=== PATIENT | female | born 1965 | race Caucasian/White ===

== ENCOUNTER 2016-11-05 19:07 | Observation (INO) | payer BC ==
[~2016-11-05] VITALS: Ht 160 cm; Wt 134.6 kg
[~2016-11-05 19:07] MED LIST: ALBUTEROL0.83 MG/ML IH; ANTIVERT 25MG25 MG PO; CARAFATE 1GM1 G PO; CELEBREX 200MG200 MG PO; CLARITIN 1010 MG/TAB PO; COLACE 100100 MG/CAP PO; DICLOFENAC POT.50 MG PO; DICLOFENAC SOD50 MG PO; DONNATAL PO; FLEXERIL 1010 MG/TAB PO; FLONASE NASAL S16 GM NS; HUMIRA40 MG/0.8 SQ; MELOXICAM PO; MOTRIN 600600 MG/TAB PO; NO HOME MEDICATIONS; PERCOCET 325 MG1 TA2 PO; PREVACID 15MG15 M1 PO; PRILOSEC 20MG20 MG PO; PROAIR HFA0.09 MG/AC IH; REGLAN 5MG T5 MG/TAB PO; TYLENOL ARTHRI650 M1 PO; ULTRAM 50MG TAB50 MG PO; VALIUM5 MG PO; VICODIN 5/5001 UDTAB PO; ZOFRAN4 M1 PO
[2016-11-05 19:37] LABS: BASO % 0.6 % (0.0-2.0); EOS # 0.2 (0.0-0.7); EOS % 2.6 % (0-4.0); GRAN # 2.7 (1.4-6.5); GRAN % 40.7 % (42.2-75.2); HEMATOCRIT 40.1 % (37.0-47.0); HEMOGLOBIN 13.8 g/dl (12.5-16.0); LYMPH % 45.7 % (20.0-51.0); MEAN CELL VOLUME 94 fl (80.0-100.0); MEAN CORPUSCULAR HEMOGLOBIN 32 pg (27.0-31.0); MEAN CORPUSCULAR HGB CONC 34 g/dl (33.0-37.0); MEAN PLATELET VOLUME 10.1 fl (7.4-10.4); MONO # 0.7 (0.1-0.6); MONO % 10.2 % (1.7-9.3); PLATELET COUNT 328 K/mm3 (130-400); RED BLOOD COUNT 4.26 M/mm3 (4.10-5.30); REDCELL DISTRIBUTION WIDTH-CV 14.4 % (11.5-14.5); WHITE BLOOD COUNT 6.5 K/mm3 (4.8-10.8)
[2016-11-05 19:53] LABS: ADJUSTED CALCIUM 9.5 mg/dL (8.4-10.2); ALANINE AMINOTRANSFERASE 49 U/L (9-52); ALBUMIN 4.2 gm/dL (3.5-5.0); ALKALINE PHOSPHATASE 54 U/L (50-136); ANION GAP 12 mmol/L (7-16); BILIRUBIN,TOTAL 0.7 mg/dL (0.0-1.0); BLOOD UREA NITROGEN 15 mg/dL (7-17); CALCIUM 9.7 mg/dL (8.4-10.2); CARBON DIOXIDE 30 mmol/L (22-30); CHLORIDE 100 mmol/L (98-107); GLUCOSE 128 mg/dL (74-106); POTASSIUM 3.3 mmol/L (3.4-5.0); SODIUM 142 mmol/L (137-145); TOTAL PROTEIN 7.7 gm/dL (6.4-8.2)
[2016-11-05 20:06] LABS: TROPONIN-I < 0.012 ng/mL (0.000-0.034)
[2016-11-05] MEDS ORDERED: TYLENOL 500MG500 MG PO (23:28)
[2016-11-05] MEDS ORDERED: RELAFEN750 MG PO (23:52)
[2016-11-05] MEDS ORDERED: FOLIC ACID 11 MG/TA1 PO (23:53)
[2016-11-05] MEDS ORDERED: HCTZ 25MG TAB25 MG PO (23:54)
[2016-11-05] MEDS ORDERED: METHOTREXA2.5 MG/TAB PO (23:56)
[2016-11-05] MEDS ORDERED: EFFEXOR-XR150 MG PO (23:58)
[2016-11-06 00:04] VITALS: BP 135/65; PULSE 69; TEMP 97.6
[2016-11-06 01:36] LABS: MAGNESIUM 1.7 mg/dL (1.6-2.3); PHOSPHOROUS 3.6 mg/dL (2.5-4.5)
[2016-11-06 04:11] VITALS: BP 141/75; PULSE 67; TEMP 97.3
[2016-11-06 04:40] LABS: PH 6 (5-8); URINE APPEARANCE Clear; URINE BACTERIA Rare /hpf; URINE BILIRUBIN Negative (NEGATIVE); URINE BLOOD Negative (NEGATIVE); URINE COLOR Yellow; URINE GLUCOSE Negative (NEGATIVE); URINE KETONE Negative (NEGATIVE); URINE UROBILINOGEN Negative (NEGATIVE)
[2016-11-06 07:46] LABS: CALCIUM 9.3 mg/dL (8.4-10.2); CREATININE, serum 0.84 mg/dL (0.52-1.25); POTASSIUM 3.9 mmol/L (3.4-5.0)
[2016-11-06 07:58] VITALS: BP 132/66; PULSE 71; TEMP 98.5
[2016-11-06 15:30] VITALS: BP 128/60; PULSE 77; TEMP 99
[2016-11-06 18:36] LABS: CEREBROSPINAL TUBE #4; CSF APPEARANCE CLEAR; CSF COLOR COLORLESS
[2016-11-06 19:29] VITALS: BP 116/62; PULSE 73; TEMP 98.2
[2016-11-07 03:31] VITALS: BP 135/72; PULSE 72; TEMP 97.8
[2016-11-07 07:45] VITALS: BP 148/92; PULSE 74; TEMP 98.4
[2016-11-07] MEDS ORDERED: ZOFRAN 4MG T4 MG/TAB PO (11:11)
[2016-11-07] MEDS ORDERED: IMITREX50 MG PO (11:11)
[2016-11-07] MEDS ORDERED: ULTRAM 50MG TAB50 MG PO (11:12)
[2016-11-07] MEDS ORDERED: NEURONTIN100 MG/CAP PO (11:16)
== END 2016-11-07 12:30 | disposition home or self-care (01) ==
LOC: COL.ER 19:07 → MEDICAL 20:59
PROVIDERS: Emergency Medicine; Family Medicine; Nurse Practitioner Family
DX: M54.81 Occipital neuralgia (principal); M50.30 Other cervical disc degeneration, unspecified cervical region; E87.6 Hypokalemia; I10 Essential (primary) hypertension; M06.9 Rheumatoid arthritis, unspecified; H83.8X1 Other specified diseases of right inner ear; K21.9 Gastro-esophageal reflux disease without esophagitis; Z87.891 Personal history of nicotine dependence
CPT/HCPCS: A9585; G0378; J1885; J2405; J3010; J7030

== ENCOUNTER 2017-11-22 18:18 | Emergency (ER) | payer BC ==
[~2017-11-22] VITALS: Ht 160 cm; Wt 141.8 kg
[~2017-11-22 18:18] MED LIST changes: +EFFEXOR-XR150 MG PO; +FOLIC ACID 11 MG/TA1 PO; +HCTZ 25MG TAB25 MG PO; +IMITREX50 MG PO; +METHOTREXA2.5 MG/TAB PO; +NEURONTIN100 MG/CAP PO; +RELAFEN750 MG PO; +TYLENOL 500MG500 MG PO; +ZOFRAN 4MG T4 MG/TAB PO
[2017-11-22 18:26] VITALS: BP 144/79; TEMP 98
[2017-11-22 19:28] LABS: BASO % 0.3 % (0.0-2.0); EOS # 0.1 (0.0-0.7); GRAN # 2.4 (1.4-6.5); GRAN % 41.3 % (42.2-75.2); HEMOGLOBIN 13.4 g/dl (12.5-16.0); LYMPH # 2.9 (1.2-3.4); LYMPH % 49.3 % (20.0-51.0); MEAN CELL VOLUME 93 fl (80.0-100.0); MEAN CORPUSCULAR HEMOGLOBIN 30 pg (27.0-31.0); MEAN CORPUSCULAR HGB CONC 33 g/dl (33.0-37.0); MEAN PLATELET VOLUME 10.6 fl (7.4-10.4); MONO # 0.5 (0.1-0.6); MONO % 7.8 % (1.7-9.3); PLATELET COUNT 266 K/mm3 (130-400); RED BLOOD COUNT 4.43 M/mm3 (4.10-5.30); REDCELL DISTRIBUTION WIDTH-CV 13.6 % (11.5-14.5)
[2017-11-22 19:40] LABS: PARTIAL THROMBOPLASTIN TIME 27.6 SECONDS (26.0-37.0)
[2017-11-22 19:42] LABS: ALANINE AMINOTRANSFERASE 83 U/L (9-52); ALBUMIN 4.2 gm/dL (3.5-5.0); ALKALINE PHOSPHATASE 64 U/L (50-136); ANION GAP 8 mmol/L (7-16); AST,SGOT 37 U/L (15-37); BILIRUBIN,TOTAL 0.4 mg/dL (0.0-1.0); BLOOD UREA NITROGEN 14 mg/dL (7-17); CARBON DIOXIDE 29 mmol/L (22-30); CHLORIDE 102 mmol/L (98-107); CREATININE, serum 0.94 mg/dL (0.52-1.25); GLUCOSE 143 mg/dL (74-106); POTASSIUM 3.5 mmol/L (3.4-5.0); SODIUM 139 mmol/L (137-145); TOTAL PROTEIN 7.5 gm/dL (6.4-8.2)
[2017-11-22 19:48] LABS: D-DIMER < 200.00 ng/mLDDu (200-230)
[2017-11-22 19:53] LABS: TROPONIN-I < 0.012 ng/mL (0.000-0.034)
[2017-11-22 20:46] LABS: COLLECTION METHOD CLEAN CATCH
[2017-11-22 20:55] LABS: MUCOUS Present /lpf; PH 5 (5-8); SQUAMOUS EPITHELIAL 20-50 /hpf; URINE APPEARANCE Cloudy; URINE BACTERIA None Seen /hpf; URINE BILIRUBIN Negative (NEGATIVE); URINE BLOOD 1+ (NEGATIVE); URINE COLOR Yellow; URINE GLUCOSE Negative (NEGATIVE); URINE KETONE Negative (NEGATIVE); URINE LEUKOCYTE ESTERASE 3+ (NEGATIVE); URINE NITRATE Negative (NEGATIVE); URINE PROTEIN(semi-quant) Negative (NEGATIVE); URINE RBC 20-50 /hpf; URINE UROBILINOGEN Negative (NEGATIVE)
[2017-11-22] MEDS ORDERED: PYRIDIUM200 M1 PO (21:08)
[2017-11-22] MEDS ORDERED: MACROBID 1100 MG/CAP PO (21:08)
[2017-11-22 21:29] VITALS: PULSE 95
== END 2017-11-22 21:30 | disposition home or self-care (01) ==
LOC: COL.ER 18:18
PROVIDERS: Emergency Medicine
DX: M79.651 Pain in right thigh (principal); N39.0 Urinary tract infection, site not specified; M06.9 Rheumatoid arthritis, unspecified; I10 Essential (primary) hypertension; Z86.711 Personal history of pulmonary embolism; Z86.718 Personal history of other venous thrombosis and embolism

== ENCOUNTER 2018-01-09 03:52 | Emergency (ER) | payer BC ==
[~2018-01-09] VITALS: Ht 160 cm; Wt 143.2 kg
[~2018-01-09 03:52] MED LIST changes: +MACROBID 1100 MG/CAP PO; +PYRIDIUM200 M1 PO
[2018-01-09 03:56] VITALS: TEMP 98.9
[2018-01-09 04:32] LABS: BASO % 0.1 % (0.0-2.0); EOS % 0.2 % (0-4.0); GRAN # 6.9 (1.4-6.5); GRAN % 86.1 % (42.2-75.2); HEMATOCRIT 41.3 % (37.0-47.0); HEMOGLOBIN 14.1 g/dl (12.5-16.0); LYMPH # 0.7 (1.2-3.4); LYMPH % 9.2 % (20.0-51.0); MEAN CELL VOLUME 89 fl (80.0-100.0); MEAN CORPUSCULAR HEMOGLOBIN 30 pg (27.0-31.0); MEAN CORPUSCULAR HGB CONC 34 g/dl (33.0-37.0); MEAN PLATELET VOLUME 10.5 fl (7.4-10.4); MONO # 0.3 (0.1-0.6); PLATELET COUNT 296 K/mm3 (130-400); RED BLOOD COUNT 4.66 M/mm3 (4.10-5.30); REDCELL DISTRIBUTION WIDTH-CV 14.3 % (11.5-14.5)
[2018-01-09 04:52] LABS: ALANINE AMINOTRANSFERASE 82 U/L (9-52); ALBUMIN 4.1 gm/dL (3.5-5.0); ALKALINE PHOSPHATASE 75 U/L (50-136); ANION GAP 15 mmol/L (7-16); AST,SGOT 56 U/L (15-37); BILIRUBIN,TOTAL 0.7 mg/dL (0.0-1.0); BLOOD UREA NITROGEN 13 mg/dL (7-17); C-REACTIVE PROTEIN 1.9 mg/dL (0.0-0.9); CALCIUM 9.3 mg/dL (8.4-10.2); CARBON DIOXIDE 23 mmol/L (22-30); CHLORIDE 101 mmol/L (98-107); CREATININE, serum 0.91 mg/dL (0.52-1.25); GLUCOSE 132 mg/dL (74-106); LIPASE 132 U/L (23-300); MAGNESIUM 1.7 mg/dL (1.6-2.3); POTASSIUM 4.2 mmol/L (3.4-5.0); SODIUM 140 mmol/L (137-145); TOTAL PROTEIN 8.4 gm/dL (6.4-8.2)
[2018-01-09 04:55] LABS: ERYTHROCYTE SEDIMENTATION RATE 7 mm/hr (0-30)
[2018-01-09 05:02] LABS: TROPONIN-I < 0.012 ng/mL (0.000-0.034)
[2018-01-09 06:45] LABS: COLLECTION METHOD CLEAN CATCH
[2018-01-09 06:50] LABS: PH 8 (5-8); URINE APPEARANCE Hazy; URINE BACTERIA None Seen /hpf; URINE BILIRUBIN Negative (NEGATIVE); URINE BLOOD Negative (NEGATIVE); URINE COLOR Yellow; URINE GLUCOSE Negative (NEGATIVE); URINE KETONE Negative (NEGATIVE); URINE LEUKOCYTE ESTERASE Trace (NEGATIVE); URINE NITRATE Negative (NEGATIVE); URINE PROTEIN(semi-quant) Negative (NEGATIVE); URINE RBC 0-2 /hpf; URINE UROBILINOGEN Negative (NEGATIVE)
[2018-01-09] MEDS ORDERED: FLEXERIL 1010 MG/TAB PO (07:51)
[2018-01-09] MEDS ORDERED: NORCO 325 MG-51 TAB PO (07:51)
[2018-01-09 09:17] VITALS: BP 120/67; PULSE 94
== END 2018-01-09 09:17 | disposition home or self-care (01) ==
LOC: COL.ER 03:52
PROVIDERS: Emergency Medicine
DX: G43.909 Migraine, unspecified, not intractable, without status migrainosus (principal); K21.9 Gastro-esophageal reflux disease without esophagitis; F41.9 Anxiety disorder, unspecified; J45.909 Unspecified asthma, uncomplicated; Z90.49 Acquired absence of other specified parts of digestive tract; Z90.710 Acquired absence of both cervix and uterus
CPT/HCPCS: J1170; J1885; J2550; J7030; Q9967

== ENCOUNTER → 2018-02-06 | Outpatient (CLI) | payer BC ==
[~2018-02-06] MED LIST changes: +NORCO 325 MG-51 TAB PO
== END ==
LOC: COL.RAD 09:48
DX: K76.0 Fatty (change of) liver, not elsewhere classified (principal); R93.5 Abnormal findings on diagnostic imaging of other abdominal regions, including retroperitoneum
CPT/HCPCS: Q9967

== ENCOUNTER 2019-04-18 16:11 | Emergency (ER) | payer BC ==
[~2019-04-18] VITALS: Ht 160 cm; Wt 146.4 kg
[2019-04-18 16:47] VITALS: TEMP 98.2
[2019-04-18 17:22] LABS: BASO % 0.5 % (0.0-2.0); EOS # 0.1 (0.0-0.7); EOS % 0.8 % (0-4.0); GRAN # 4.7 (1.4-6.5); GRAN % 53.9 % (42.2-75.2); HEMATOCRIT 44.8 % (37.0-47.0); HEMOGLOBIN 14.9 g/dl (12.5-16.0); LYMPH % 34.9 % (20.0-51.0); MEAN CELL VOLUME 92 fl (80.0-100.0); MEAN CORPUSCULAR HEMOGLOBIN 31 pg (27.0-31.0); MEAN CORPUSCULAR HGB CONC 33 g/dl (33.0-37.0); MEAN PLATELET VOLUME 10.5 fl (7.4-10.4); MONO # 0.8 (0.1-0.6); MONO % 9.7 % (1.7-9.3); PLATELET COUNT 293 K/mm3 (130-400); RED BLOOD COUNT 4.88 M/mm3 (4.10-5.30); REDCELL DISTRIBUTION WIDTH-CV 13.1 % (11.5-14.5)
[2019-04-18 17:32] LABS: ALBUMIN 4.7 gm/dL (3.5-5.0); BILIRUBIN,TOTAL 0.6 mg/dL (0.0-1.0); CALCIUM 10.1 mg/dL (8.4-10.2); CREATININE, serum 1.16 (0.52-1.25); POTASSIUM 3.6 mmol/L (3.4-5.0); TOTAL PROTEIN 8.7 gm/dL (6.4-8.2)
[2019-04-18 18:02] LABS: COLLECTION METHOD CLEAN CATCH
[2019-04-18 18:08] LABS: MUCOUS Present /lpf; PH 5 (5-8); SQUAMOUS EPITHELIAL 0-2 /hpf; URINE APPEARANCE Clear; URINE BACTERIA None Seen /hpf; URINE BILIRUBIN Negative (NEGATIVE); URINE BLOOD 1+ (NEGATIVE); URINE COLOR Yellow; URINE GLUCOSE Negative (NEGATIVE); URINE KETONE Negative (NEGATIVE); URINE LEUKOCYTE ESTERASE Negative (NEGATIVE); URINE NITRATE Negative (NEGATIVE); URINE PROTEIN(semi-quant) Negative (NEGATIVE); URINE RBC 0-2 /hpf; URINE UROBILINOGEN Negative (NEGATIVE)
[2019-04-18] MEDS ORDERED: CONSTULOSE 20G/30ML PO (20:32)
[2019-04-18 20:45] VITALS: BP 131/91; PULSE 98
== END 2019-04-18 20:45 | disposition home or self-care (01) ==
LOC: COL.ER 16:11
PROVIDERS: Emergency Medicine
DX: K59.00 Constipation, unspecified (principal); R10.84 Generalized abdominal pain; I10 Essential (primary) hypertension; K21.9 Gastro-esophageal reflux disease without esophagitis; J45.909 Unspecified asthma, uncomplicated; G43.909 Migraine, unspecified, not intractable, without status migrainosus; M06.9 Rheumatoid arthritis, unspecified; Z90.49 Acquired absence of other specified parts of digestive tract; Z90.710 Acquired absence of both cervix and uterus; Z87.891 Personal history of nicotine dependence
CPT/HCPCS: J7030; Q9967

== ENCOUNTER → 2019-10-06 | Outpatient (CLI) | payer BC ==
[~2019-10-06] MED LIST changes: +CONSTULOSE 20G/30ML PO
== END ==
LOC: COL.RAD 08:55
DX: M47.816 Spondylosis without myelopathy or radiculopathy, lumbar region (principal); G89.29 Other chronic pain

== ENCOUNTER 2019-12-02 15:16 | Outpatient (RCR) | payer BC ==
[2019-12-09] MEDS ORDERED: NORCO 325 MG-51 TAB PO (10:49)
[2019-12-17] MEDS ORDERED: PREDNISONE10 MG PO (08:15)
[2019-12-17] MEDS ORDERED: NORCO 325 MG-7.1 TAB PO (08:15)
[2019-12-17] MEDS ORDERED: LOTENSIN HCT 201 TA1 PO (08:16)
[2019-12-17] MEDS ORDERED: SIMPONIARIA (08:19)
[2019-12-19] MEDS ORDERED: OMNICEF 300MG300 MG PO (08:15)
[2020-02-17] MEDS ORDERED: NEURONTIN300 MG/CAP PO (20:09)
[2020-02-17] MEDS ORDERED: NEURONTIN100 MG/CAP PO (20:10)
[2020-02-18] MEDS ORDERED: FIORICET 325 MG1 TA1 PO (19:32)
[2020-02-24] MEDS ORDERED: ROCEPHIN 2GM VIAL21 IV (07:32)
[2020-02-24] MEDS ORDERED: RT ADVAIR 128 DISKUS IH (07:35)
[2020-02-24] MEDS ORDERED: BD POSIFLUSH SF10 ML IV (09:54)
[2020-02-24] MEDS ORDERED: PREDNISONE20 MG PO (12:13)
== END 2020-03-01 | disposition home or self-care (01) ==
LOC: MKS.ESL.PT
DX: M54.5 Low back pain (principal); G89.29 Other chronic pain

== ENCOUNTER 2019-12-09 08:04 | Emergency (ER) | payer BC ==
[~2019-12-09] VITALS: Ht 160 cm; Wt 150.0 kg
[2019-12-09 08:09] VITALS: BP 165/87; TEMP 97
[2019-12-09] MEDS ORDERED: NORCO 325 MG-51 TAB PO (10:49)
[2019-12-09 11:40] VITALS: PULSE 81
== END 2019-12-09 11:40 | disposition home or self-care (01) ==
LOC: COL.ER 08:04
DX: R51 Headache (principal); M54.2 Cervicalgia; J45.909 Unspecified asthma, uncomplicated; I10 Essential (primary) hypertension; M06.9 Rheumatoid arthritis, unspecified; K21.9 Gastro-esophageal reflux disease without esophagitis; F32.9 Major depressive disorder, single episode, unspecified; F41.9 Anxiety disorder, unspecified; Z90.710 Acquired absence of both cervix and uterus; Z87.39 Personal history of other diseases of the musculoskeletal system and connective tissue
CPT/HCPCS: J1170; J1885; J2405

== ENCOUNTER 2019-12-10 04:59 | Emergency (ER) | payer BC ==
[~2019-12-10] VITALS: Ht 160 cm; Wt 152.7 kg
[2019-12-10 06:40] LABS: BASO % 0.4 % (0.0-2.0); EOS # 0.2 (0.0-0.7); EOS % 3.1 % (0-4.0); GRAN # 1.6 (1.4-6.5); GRAN % 29.8 % (42.2-75.2); HEMOGLOBIN 13.4 g/dl (12.5-16.0); LYMPH # 3.1 (1.2-3.4); LYMPH % 57.5 % (20.0-51.0); MEAN CELL VOLUME 94 fl (80.0-100.0); MEAN CORPUSCULAR HEMOGLOBIN 30 pg (27.0-31.0); MEAN CORPUSCULAR HGB CONC 32 g/dl (33.0-37.0); MONO # 0.5 (0.1-0.6); MONO % 8.8 % (1.7-9.3); PLATELET COUNT 255 K/mm3 (130-400); RED BLOOD COUNT 4.47 M/mm3 (4.10-5.30); REDCELL DISTRIBUTION WIDTH-CV 13.2 % (11.5-14.5)
[2019-12-10 06:55] LABS: ALBUMIN 4.2 gm/dL (3.5-5.0); BILIRUBIN,TOTAL 0.4 mg/dL (0.0-1.0); CALCIUM 9.2 mg/dL (8.4-10.2); CREATININE, serum 1.15 (0.52-1.25); POTASSIUM 3.8 mmol/L (3.4-5.0); TOTAL PROTEIN 7.5 gm/dL (6.4-8.2)
[2019-12-10 08:48] VITALS: BP 123/86; PULSE 79; TEMP 98.1
== END 2019-12-10 08:46 | disposition home or self-care (01) ==
LOC: COL.ER 04:59
PROVIDERS: Emergency Medicine
DX: R20.2 Paresthesia of skin (principal); I10 Essential (primary) hypertension; G43.909 Migraine, unspecified, not intractable, without status migrainosus; K21.9 Gastro-esophageal reflux disease without esophagitis; M06.9 Rheumatoid arthritis, unspecified; J45.909 Unspecified asthma, uncomplicated
CPT/HCPCS: J1885; J7030

== ENCOUNTER → 2020-02-10 | Outpatient (CLI) | payer BC ==
[~2020-02-10] MED LIST changes: +LOTENSIN HCT 201 TA1 PO; +NORCO 325 MG-7.1 TAB PO; +OMNICEF 300MG300 MG PO; +PREDNISONE10 MG PO; +SIMPONIARIA
[2020-02-10 13:30] VITALS: BP 142/77; PULSE 108
[2020-02-10 14:19] VITALS: BP 101/67; PULSE 89
[2020-02-10 14:30] VITALS: BP 102/70; PULSE 90
[2020-02-10 14:45] VITALS: BP 112/82; PULSE 89
[2020-02-10 15:02] VITALS: BP 134/84; PULSE 88
[2020-02-10 15:04] LABS: GLUCOSE,CSF 98 mg/dL (40-70); TOTAL PROTEIN,CSF 48 mg/dL (15-45)
[2020-02-10 15:15] VITALS: BP 140/83; PULSE 81
--- NOTE | 2020-02-10 15:37 | NUR ---
PT TAKEN TO POV IN WHEELCHAIR
[2020-02-10 18:08] LABS: CSF APPEARANCE CLEAR; CSF COLOR COLORLESS
[2020-02-10 18:09] LABS: CSF MONONUCLEAR 0 % (70-100); CSF POLYMORPHONUCLEAR 0 % (0-6); CSF RBC 423 /mm3 (0-0)
== END ==
LOC: COL.RAD 13:08
PROVIDERS: Psychiatry & Neurology Neurology
DX: R51 Headache (principal)

== ENCOUNTER 2020-02-17 14:42 | Inpatient (IN) | payer BC ==
[~2020-02-17] VITALS: Ht 160 cm; Wt 152.7 kg
[2020-02-17 16:21] LABS: BASO % 0.2 % (0.0-2.0); GRAN # 9.7 (1.4-6.5); GRAN % 79.9 % (42.2-75.2); HEMATOCRIT 42.2 % (37.0-47.0); LYMPH # 1.2 (1.2-3.4); LYMPH % 9.6 % (20.0-51.0); MEAN CELL VOLUME 93 fl (80.0-100.0); MEAN CORPUSCULAR HEMOGLOBIN 31 pg (27.0-31.0); MEAN CORPUSCULAR HGB CONC 33 g/dl (33.0-37.0); MEAN PLATELET VOLUME 10.2 fl (7.4-10.4); MONO # 1.2 (0.1-0.6); MONO % 9.9 % (1.7-9.3); PLATELET COUNT 293 K/mm3 (130-400); RED BLOOD COUNT 4.56 M/mm3 (4.10-5.30); REDCELL DISTRIBUTION WIDTH-CV 14.6 % (11.5-14.5)
[2020-02-17 16:41] LABS: ALANINE AMINOTRANSFERASE 39 U/L (4-34); ALBUMIN 4.7 gm/dL (3.5-5.0); ALKALINE PHOSPHATASE 73 U/L (50-136); ANION GAP 11 mmol/L (7-16); AST,SGOT 29 U/L (15-37); BILIRUBIN,TOTAL 1.1 mg/dL (0.0-1.0); BLOOD UREA NITROGEN 17 mg/dL (7-17); CARBON DIOXIDE 30 mmol/L (22-30); CHLORIDE 92 mmol/L (98-107); CREATININE, serum 1.38 (0.52-1.25); GLUCOSE 162 mg/dL (74-106); POTASSIUM 3.5 mmol/L (3.4-5.0); SODIUM 133 mmol/L (137-145); TOTAL PROTEIN 8.8 gm/dL (6.4-8.2)
[2020-02-17 16:57] LABS: TROPONIN-I < 0.012 ng/mL (0.000-0.035)
[2020-02-17 16:58] LABS: C-REACTIVE PROTEIN 16.8 mg/dL (0.0-0.9)
[2020-02-17] MEDS ORDERED: NEURONTIN300 MG/CAP PO (20:09)
[2020-02-17] MEDS ORDERED: NEURONTIN100 MG/CAP PO (20:10)
--- NOTE | 2020-02-17 20:14 | NUR ---
Pharmacy need clarification on Gabapentin dose, will bring medication prescription in. patient came in through ER today due to Febrile episode, UTI, and Malaise. Call light with patient. Report given to nurse LANE Perez
--- NOTE | 2020-02-17 20:24 | NUR ---
health department swab patient for covid test.
[2020-02-17 20:57] VITALS: BP 120/60; PULSE 120; TEMP 100.4
[2020-02-18] VITALS (9 sets, daily range): BP systolic 103–140; BP diastolic 45–72; PULSE 70–110; TEMP 99.1–103
[2020-02-18 07:21] LABS: CALCIUM 8.4 mg/dL (8.4-10.2); CREATININE, serum 1.3 (0.52-1.25); MAGNESIUM 1.4 mg/dL (1.6-2.3); POTASSIUM 3.1 mmol/L (3.4-5.0)
[2020-02-18 07:39] LABS: BASO % 0.2 % (0.0-2.0); GRAN # 9.6 (1.4-6.5); LYMPH # 1.7 (1.2-3.4); LYMPH % 13.5 % (20.0-51.0); MEAN CELL VOLUME 95 fl (80.0-100.0); MEAN CORPUSCULAR HGB CONC 33 g/dl (33.0-37.0); MEAN PLATELET VOLUME 10.7 fl (7.4-10.4); MONO # 1.1 (0.1-0.6); MONO % 8.9 % (1.7-9.3); PLATELET COUNT 233 K/mm3 (130-400); REDCELL DISTRIBUTION WIDTH-CV 14.7 % (11.5-14.5)
[2020-02-18 07:44] LABS: HEMATOCRIT 36.9 % (37.0-47.0); MEAN CORPUSCULAR HEMOGLOBIN 31 pg (27.0-31.0)
--- NOTE | 2020-02-18 15:51 | NUR ---
ANGELICA attempted contact the patient on her room phone and cell phone for initial intake. There was no answer. ANGELICA contacted the patient's Noah to complete it. Noah and the patient live in [place]. The patient's PCP is Dr. Nails and patient receives medications from [facility]. The patient has a walker from a previous time she needed it. The patient has a CPAP and is independent with ADLs. The patient does not have advanced directives. Noah will provide transportation for the patient at discharge. food and nutrition services assistant will continue to follow for any identified needs at discharge.
--- NOTE | 2020-02-18 15:59 | NUR ---
PT ASLEEP UPON ENTRY WITH CPAP ON. PT GIVEN TYLENOL FOR 103.0 TEMPERATURE. PT HAS NO COMPLAINTS OR NEEDS AT THIS TIME. NO FURTHER CONCERNS.
[2020-02-18] MEDS ORDERED: FIORICET 325 MG1 TA1 PO (19:32)
--- NOTE | 2020-02-18 19:35 | NUR ---
REPORT GIVEN TO CONCEPCION.
--- NOTE | 2020-02-18 20:00 | NUR ---
At time of assessment, patient is alert and oriented and resting in bed. Her temperature at this time is 98.4 and patient states she is at a tolerable pain level of 2/10. She has no edema present. Lungs are clear/diminished and she wears 3L o2 nasal cannula. Will continue to monitor.
[2020-02-19] VITALS (7 sets, daily range): BP systolic 124–142; BP diastolic 68–78; PULSE 81–100; TEMP 98–103
--- NOTE | 2020-02-19 05:13 | NUR ---
Patient has had an uneventful night. She did request Ultram once for pain 7/10 in her back/head. Otherwise, she has been sleeping with no new concerns. She has been afebrile for most of the night but spiked a temperature of 99.1 around 0300. Tylenol was administered and temperature remains 99.3. Will continue to monitor.
[2020-02-19 07:14] LABS: BASO % 0.2 % (0.0-2.0); EOS % 0.1 % (0-4.0); GRAN % 72.6 % (42.2-75.2); HEMOGLOBIN 11.3 g/dl (12.5-16.0); LYMPH # 1.4 (1.2-3.4); LYMPH % 17.5 % (20.0-51.0); MEAN CELL VOLUME 95 fl (80.0-100.0); MEAN CORPUSCULAR HEMOGLOBIN 31 pg (27.0-31.0); MEAN CORPUSCULAR HGB CONC 32 g/dl (33.0-37.0); MEAN PLATELET VOLUME 10.8 fl (7.4-10.4); MONO # 0.8 (0.1-0.6); MONO % 9.4 % (1.7-9.3); PLATELET COUNT 191 K/mm3 (130-400); REDCELL DISTRIBUTION WIDTH-CV 14.6 % (11.5-14.5)
[2020-02-19 07:37] LABS: CALCIUM 8.1 mg/dL (8.4-10.2); CREATININE, serum 1.02 (0.52-1.25); MAGNESIUM 2.7 mg/dL (1.6-2.3)
--- NOTE | 2020-02-19 09:43 | NUR ---
REPORT WAS RCVD FROM LANE JAVIER. PT HAS NO C/O PAIN OR DISCOMFORT AT THIS TIME. PT HAS BEEN AFEBRILE THROUGHOUT THE NIGHT. UPON ASSESSMENT PT TEMPERATURE WAS 98.4. AWAITING COVID RESULTS. PT WITHOUT NEEDS AT THIS TIME. CALL LIGHT WITHIN REACH. NO FURTHER CONCERNS.
--- NOTE | 2020-02-19 19:53 | NUR ---
PT HAD UNEVENTFUL DAY. AT APPROXIMATELY 1600 PT SPIKED AT 103.0 FEVER. TYLENOL WAS GIVEN. PT WAS RETESTED FOR COVID-19, AND SENT TO THE LAB. NO FURTHER CONCERNS AT THIS TIME. REPORT GIVEN TO LANE JAVIER
--- NOTE | 2020-02-19 20:04 | NUR ---
At time of assessment, patient is sitting up in chair eating dinner. She is alert and oriented and on 2L. She is titrated to 3L, as her oxygen saturation is 89%. She is currently 93-94% on 3L. She is diaphoretic, as her fever has broken and is currently 99.9. She ambulates easily with slight weakness to the bathroom to void. Her gown is changed because it is wet with sweat. She does not complain at this time. Will continue to monitor.
[2020-02-20 00:18] VITALS: BP 144/72; PULSE 96; TEMP 99.7
[2020-02-20 04:00] VITALS: BP 138/80; PULSE 90; TEMP 100
[2020-02-20 05:26] LABS: BASO % 0.3 % (0.0-2.0); EOS % 0.3 % (0-4.0); GRAN # 4.2 (1.4-6.5); GRAN % 56.3 % (42.2-75.2); HEMOGLOBIN 10.6 g/dl (12.5-16.0); LYMPH # 2.4 (1.2-3.4); LYMPH % 32.3 % (20.0-51.0); MEAN CELL VOLUME 93 fl (80.0-100.0); MEAN CORPUSCULAR HEMOGLOBIN 31 pg (27.0-31.0); MEAN CORPUSCULAR HGB CONC 33 g/dl (33.0-37.0); MEAN PLATELET VOLUME 10.7 fl (7.4-10.4); MONO # 0.8 (0.1-0.6); MONO % 10.4 % (1.7-9.3); PLATELET COUNT 209 K/mm3 (130-400); RED BLOOD COUNT 3.45 M/mm3 (4.10-5.30); REDCELL DISTRIBUTION WIDTH-CV 14.3 % (11.5-14.5)
[2020-02-20 05:34] LABS: HEMATOCRIT 32.1 % (37.0-47.0)
[2020-02-20 05:40] LABS: CALCIUM 7.9 mg/dL (8.4-10.2); CREATININE, serum 0.96 (0.52-1.25); MAGNESIUM 2.3 mg/dL (1.6-2.3); POTASSIUM 3.3 mmol/L (3.4-5.0)
[2020-02-20 08:00] VITALS: BP 132/70; PULSE 82; TEMP 99
--- NOTE | 2020-02-20 10:11 | NUR ---
PT BACK FROM RADIOLOGY ON RA 85%. PLACED BACK ON 3 LPM NC 93%
--- NOTE | 2020-02-20 11:33 | NUR ---
Patient is alert and oriented. denies any pain. temp at 99.0. breath sound diminished. heart sound s1,s2. patient had a abd CT Scan today. new order for ac/hs. patient resting at this time.
[2020-02-20 12:01] VITALS: BP 123/66; PULSE 97; TEMP 98.1
[2020-02-20 17:31] VITALS: BP 131/75; PULSE 93; TEMP 98.7
[2020-02-20 20:36] VITALS: BP 127/60; PULSE 90; TEMP 100.9
[2020-02-21 00:36] VITALS: BP 159/91; PULSE 97; TEMP 100
--- NOTE | 2020-02-21 02:46 | NUR ---
PT IN BED. NO N/V. TYLENOL AT H.S. FOR GENERAL DISCOMFORT. LUNGS DIMINISHED IN BASES. TEMP(S) OF 100.0 AND 100.9.
[2020-02-21 04:52] VITALS: BP 134/71; PULSE 82; TEMP 96.3
[2020-02-21 08:39] VITALS: BP 133/66; PULSE 76; TEMP 98.4
[2020-02-21 09:00] LABS: BASO % 0.4 % (0.0-2.0); EOS # 0.1 (0.0-0.7); EOS % 1.3 % (0-4.0); GRAN # 2.5 (1.4-6.5); GRAN % 44.8 % (42.2-75.2); HEMOGLOBIN 10.2 g/dl (12.5-16.0); LYMPH # 2.3 (1.2-3.4); LYMPH % 41.4 % (20.0-51.0); MEAN CELL VOLUME 95 fl (80.0-100.0); MEAN CORPUSCULAR HEMOGLOBIN 30 pg (27.0-31.0); MEAN CORPUSCULAR HGB CONC 32 g/dl (33.0-37.0); MONO # 0.6 (0.1-0.6); MONO % 11.2 % (1.7-9.3); PLATELET COUNT 254 K/mm3 (130-400); RED BLOOD COUNT 3.36 M/mm3 (4.10-5.30); REDCELL DISTRIBUTION WIDTH-CV 14.6 % (11.5-14.5)
[2020-02-21 09:01] LABS: HEMATOCRIT 31.8 % (37.0-47.0)
[2020-02-21 09:14] LABS: CALCIUM 8.4 mg/dL (8.4-10.2); CREATININE, serum 0.93 (0.52-1.25); POTASSIUM 3.7 mmol/L (3.4-5.0)
[2020-02-21 09:25] LABS: C-REACTIVE PROTEIN 24.9 mg/dL (0.0-0.9)
[2020-02-21 12:21] VITALS: BP 114/82; PULSE 67; TEMP 98.2
[2020-02-21 17:06] VITALS: BP 146/81; PULSE 89; TEMP 97.7
[2020-02-21 21:09] VITALS: BP 148/82; PULSE 82; TEMP 99.1
--- NOTE | 2020-02-21 21:10 | NUR ---
Resting in bed. Assessment complete. Lungs diminshed throughout. Reports shortness of breath with movement. Patient 90% on 1 liter. Increased to 2 liters. Respiratory to set up bipap for HS. Heart sounds normal. Bowels active x4. Pulses present throughout. No edema noted. INT right forearm flushed without complications. Denies pain at this time. Denies needs. Call light in reach.
[2020-02-22 00:20] VITALS: BP 141/58; PULSE 86; TEMP 98.3
--- NOTE | 2020-02-22 00:24 | NUR ---
Reports 2/10 back and neck pain. Requested PRN tramadol at this time. Provide to patient. Denies other needs. Call light in reach
--- NOTE | 2020-02-22 02:12 | NUR ---
Resting in bed asleep. Call light in reach.
[2020-02-22 04:29] VITALS: BP 150/81; PULSE 77; TEMP 97.8
--- NOTE | 2020-02-22 06:20 | NUR ---
Patient had uneventful night. Resting in bed this AM. Call light in reach. Denied needs.
--- NOTE | 2020-02-22 06:48 | NUR ---
Report given to LANE Peguero. Patient resting in bed. Denied needs.
[2020-02-22 09:02] VITALS: BP 138/76; PULSE 62; TEMP 98.1
--- NOTE | 2020-02-22 09:16 | NUR ---
Pt awake and alert upon entry, talkative and appropriate, has C/O mild headache, no other complaints. Shift assessments complete, left Pt call light in reach, bed in loweast position.
--- NOTE | 2020-02-22 11:15 | NUR ---
Pt discharged to home, discussed discharge packed with Pt, answered all questions. Escorted Pt to entrance, Pt wanted to wait for his transportation in the entrance area.
[2020-02-22 13:04] VITALS: BP 138/60; PULSE 77; TEMP 97.8
[2020-02-22 16:20] VITALS: BP 142/62; PULSE 76; TEMP 98
--- NOTE | 2020-02-22 18:31 | NUR ---
Pt resting in the room, no C/O pain today, talkative while in the room. VS have remained stable.
[2020-02-22 19:49] VITALS: BP 146/78; PULSE 73; TEMP 98.1
--- NOTE | 2020-02-22 19:55 | NUR ---
Resting in bed. Assessment complete. Bases bilaterally diminshed otherwise clear. Heart sounds normal. Bowels active x4. Pulses present throughout. No edema noted. INT right forearm without complications. Denies pain at this time. Denies needs. Call light in reach.
[2020-02-23 00:15] VITALS: BP 155/72; PULSE 73; TEMP 98.3
--- NOTE | 2020-02-23 01:49 | NUR ---
Resting in bed asleep. Call light in reach.
[2020-02-23 04:34] VITALS: BP 154/68; PULSE 77; TEMP 98.4
--- NOTE | 2020-02-23 06:30 | NUR ---
Patient had uneventful night. Denied needs this AM. Call light in reach.
--- NOTE | 2020-02-23 07:40 | NUR ---
Report given to Livia SHERMAN
[2020-02-23 08:00] VITALS: BP 135/90; PULSE 73; TEMP 98.2
[2020-02-23 08:36] LABS: HEMOGLOBIN 10.6 g/dl (12.5-16.0); MEAN CELL VOLUME 95 fl (80.0-100.0); MEAN CORPUSCULAR HEMOGLOBIN 31 pg (27.0-31.0); MEAN CORPUSCULAR HGB CONC 32 g/dl (33.0-37.0); MEAN PLATELET VOLUME 11.7 fl (7.4-10.4); PLATELET COUNT 313 K/mm3 (130-400); RED BLOOD COUNT 3.48 M/mm3 (4.10-5.30)
[2020-02-23 08:40] LABS: HEMATOCRIT 33.2 % (37.0-47.0)
--- NOTE | 2020-02-23 10:13 | NUR ---
Assessment complete. Patient watching television in bed. States she feels a little bit better. She stated she does feel a little short of breath at rest still. No complaints of pain or discomfort at this time. She is aware of her POC at this time. IV site CD&I, flushed well. Labs were drawn at this time as well due to hemolyzation on first draw. Meds were given. No other needs, Call light in reach.
[2020-02-23 10:19] LABS: BAND 1 % (0-10); BASOPHIL 1 % (0-2); METAMYELOCYTE 2 % (0-0); NEUTROPHILS 34 % (42.0-75.2)
[2020-02-23 10:22] LABS: CALCIUM 9.2 mg/dL (8.4-10.2); CREATININE, serum 1.08 (0.52-1.25); POTASSIUM 4.3 mmol/L (3.4-5.0)
[2020-02-23 10:22] LABS: ANISOCYTOSIS 1+; PLATELET ESTIMATE NORMAL (NORMAL)
[2020-02-23 10:26] LABS: EOSINOPHIL 7 % (0-4)
[2020-02-23 10:31] LABS: LYMPHOCYTE 45 % (20.0-51.0)
[2020-02-23 13:05] VITALS: BP 145/82; PULSE 75; TEMP 98.8
--- NOTE | 2020-02-23 14:30 | NUR ---
PT FOUND ON ROOM AIR SITTING IN CHAIR IN ROOM. SPO2 93% PT WALKED BACK AND FORTH IN ROOM SEVERAL TIMES WITH SPO2 94% O2 LEFT OFF.
--- NOTE | 2020-02-23 15:08 | NUR ---
ID is recommending IV Rocephin 2gm IV daily for two weeks. The patient is pending results for her second COVID test. ANGELICA contacted the patient to discuss the IV antibiotics and having them done as outpatient at a hospital or in the home. The patient reports that she would prefer to have them as outpatient at the [facility]. She states that she would have transportation to [facility] each day. ANGELICA contacted the patient's , Noah, and updated him on his 's preference. Noah was supportive of the patient's decision and reports that the patient would have transport to [facility]. ANGELICA contacted and faxed the patient's information to Mavis at [facility]. Mavis reports that they would need the patient's COVID results, before they could start administering the IV antibiotics. ANGELICA updated the hospitalist. ANGELICA to continue to follow. Mavis [facility]:
[2020-02-23 16:05] VITALS: BP 150/84; PULSE 104; TEMP 97.9
--- NOTE | 2020-02-23 18:01 | NUR ---
Pt has had a good day, she is feeling better and has had stable O2 sats off the oxygen. She is aware of her plan of care at this time. She has had no pain today, still independent in the room. No other needs, continuing to monitor.
--- NOTE | 2020-02-23 20:30 | NUR ---
Initial shift assessment done- pt did not get a supper tray!, wualfreda get a sandwich box and some pudding, crackers for her at this time, states overall is feeling good, no o2, sats 97% RA, Hopes to go home tomorrow
[2020-02-23 20:40] VITALS: BP 160/90; PULSE 71; TEMP 98.9
[2020-02-24 00:10] VITALS: BP 163/74; PULSE 84; TEMP 98.4
--- NOTE | 2020-02-24 04:43 | NUR ---
Quiet night- no requests, has been on Bipap since about 0030 this morning-
[2020-02-24 05:00] VITALS: BP 132/70; PULSE 69; TEMP 97.7
[2020-02-24] MEDS ORDERED: ROCEPHIN 2GM VIAL21 IV (07:32)
[2020-02-24] MEDS ORDERED: RT ADVAIR 128 DISKUS IH (07:35)
[2020-02-24 08:17] LABS: PATHOLOGY DIFF REVIEW OK +
[2020-02-24] MEDS ORDERED: BD POSIFLUSH SF10 ML IV (09:54)
[2020-02-24 10:00] VITALS: BP 135/78; PULSE 74; TEMP 97.9
--- NOTE | 2020-02-24 11:50 | NUR ---
Patient is alert and oriented. denies any pain. vitals within limit. Picc line was placed by LANE Griffith.
[2020-02-24] MEDS ORDERED: PREDNISONE20 MG PO (12:13)
[2020-02-24 12:47] VITALS: BP 124/70; PULSE 80; TEMP 98.2
--- NOTE | 2020-02-24 13:22 | NUR ---
The patient's COVID results came back negative. The patient is to discharge back home with her today, 02/23. ANGELICA contacted and faxed the patient's discharge orders and the script for the IV Rocephin to Livia at [facility]. Livia reports that the patient is able to come in anytime between [id number] for the IV antibiotic. ANGELICA informed the patient of this. The patient would like to come in at 1700. ANGELICA notified Livia of this. ANGELICA attempted to contact the patient's to update. ANGELICA left him a voicemail. No additional needs at this time.
--- NOTE | 2020-02-24 15:15 | NUR ---
Patient is discharged with PICC on her right upper arm. Rocephin 2G was ordered daily for 12 days. Patient was provided with discharge orders and referral, upcoming appontment for lab draw: CBC, CMP and follow up with Internal medicine. patient was informed to stop Methotrexate and Simponi till after antibiotic is completed and doctor authorize a restart. Patient discharged.
== END 2020-02-24 15:00 | disposition home or self-care (01) | DRG 871 ==
LOC: COL.ER 14:42 → MEDICAL 17:08
PROVIDERS: Emergency Medicine; Nurse Practitioner Family; ADMIT Internal Medicine
PROC: 02HV33Z Insertion of Infusion Device into Superior Vena Cava, Percutaneous Approach (ICD-10-PCS; principal; 2020-02-24)
DX: A41.51 Sepsis due to Escherichia coli [E. coli] (principal); J18.9 Pneumonia, unspecified organism; N12 Tubulo-interstitial nephritis, not specified as acute or chronic; N17.9 Acute kidney failure, unspecified; E87.1 Hypo-osmolality and hyponatremia; J81.1 Chronic pulmonary edema; I10 Essential (primary) hypertension; E78.5 Hyperlipidemia, unspecified; J45.909 Unspecified asthma, uncomplicated; E66.01 Morbid (severe) obesity due to excess calories; G47.33 Obstructive sleep apnea (adult) (pediatric); K21.9 Gastro-esophageal reflux disease without esophagitis; E11.9 Type 2 diabetes mellitus without complications; G43.909 Migraine, unspecified, not intractable, without status migrainosus; F41.9 Anxiety disorder, unspecified; M54.81 Occipital neuralgia; E83.42 Hypomagnesemia; E87.6 Hypokalemia; Z20.828 Contact with and (suspected) exposure to other viral communicable diseases; F32.9 Major depressive disorder, single episode, unspecified; M19.90 Unspecified osteoarthritis, unspecified site; M06.9 Rheumatoid arthritis, unspecified; Z90.49 Acquired absence of other specified parts of digestive tract; Z86.718 Personal history of other venous thrombosis and embolism; Z86.711 Personal history of pulmonary embolism; Z90.710 Acquired absence of both cervix and uterus; Z87.891 Personal history of nicotine dependence
CPT/HCPCS: 99222-AI; 99232-AI; 99233-AI; 99239; C1751; J0696; J1650; J1815; J2405; J2543; J3010; J3475; J7030; Q9967

== ENCOUNTER 2020-10-12 13:22 | Inpatient (IN) | payer BC ==
[~2020-10-12] VITALS: Ht 160 cm; Wt 127.4 kg
[~2020-10-12 13:22] MED LIST changes: +BD POSIFLUSH SF10 ML IV; +FIORICET 325 MG1 TA1 PO; +NEURONTIN300 MG/CAP PO; +PREDNISONE20 MG PO; +ROCEPHIN 2GM VIAL21 IV; +RT ADVAIR 128 DISKUS IH
[2020-10-12] MEDS ORDERED: ZYLOPRIM 100MG100 MG PO (13:44)
[2020-10-12 14:33] LABS: BASO % 0.2 % (0.0-2.0); EOS % 0.9 % (0-4.0); GRAN # 1.8 (1.4-6.5); GRAN % 41.5 % (42.2-75.2); HEMATOCRIT 45.7 % (37.0-47.0); HEMOGLOBIN 15.2 g/dl (12.5-16.0); LYMPH # 2.1 (1.2-3.4); LYMPH % 49.7 % (20.0-51.0); MEAN CELL VOLUME 92 fl (80.0-100.0); MEAN CORPUSCULAR HEMOGLOBIN 31 pg (27.0-31.0); MEAN CORPUSCULAR HGB CONC 33 g/dl (33.0-37.0); MEAN PLATELET VOLUME 11.7 fl (7.4-10.4); MONO # 0.3 (0.1-0.6); MONO % 7.5 % (1.7-9.3); PLATELET COUNT 219 K/mm3 (130-400); RED BLOOD COUNT 4.96 M/mm3 (4.10-5.30); REDCELL DISTRIBUTION WIDTH-CV 14.1 % (11.5-14.5)
[2020-10-12 14:44] LABS: ALANINE AMINOTRANSFERASE 63 U/L (4-34); ALBUMIN 4.3 gm/dL (3.5-5.0); ALKALINE PHOSPHATASE 76 U/L (50-136); ANION GAP 11 mmol/L (7-16); AST,SGOT 58 U/L (15-37); BILIRUBIN,TOTAL 0.7 mg/dL (0.0-1.0); BLOOD UREA NITROGEN 11 mg/dL (7-17); C-REACTIVE PROTEIN 0.6 mg/dL (0.0-0.9); CALCIUM 9.6 mg/dL (8.4-10.2); CARBON DIOXIDE 26 mmol/L (22-30); CHLORIDE 102 mmol/L (98-107); CREATININE, serum 0.81 (0.52-1.25); GLUCOSE 129 mg/dL (74-106); POTASSIUM 3.9 mmol/L (3.4-5.0); SODIUM 139 mmol/L (137-145); TOTAL PROTEIN 7.7 gm/dL (6.4-8.2)
[2020-10-12 15:06] LABS: TROPONIN-I < 0.012 ng/mL (0.000-0.035)
[2020-10-12 15:47] LABS: COLLECTION METHOD CLEAN CATCH
[2020-10-12 15:59] LABS: MUCOUS Present /lpf; PH 5 (5-8); URINE APPEARANCE Cloudy; URINE BACTERIA Many /hpf; URINE BILIRUBIN Negative (NEGATIVE); URINE BLOOD Negative (NEGATIVE); URINE COLOR Yellow; URINE GLUCOSE Negative (NEGATIVE); URINE KETONE 1+ (NEGATIVE); URINE LEUKOCYTE ESTERASE Trace (NEGATIVE); URINE NITRATE Negative (NEGATIVE); URINE PROTEIN(semi-quant) 1+ (NEGATIVE); URINE RBC None Seen /hpf; URINE UROBILINOGEN >=4.0 mg/dL (NEGATIVE)
--- NOTE | 2020-10-12 17:39 | NUR ---
Received report from LANE Lyle. Pt should arrive to Medical/Covid unit shortly. No other concerns.
[2020-10-12 18:07] VITALS: BP 140/58; PULSE 64; TEMP 98.4
--- NOTE | 2020-10-12 20:00 | NUR ---
PATIENT DENIES ANY NEEDS, REPORTS HAS H/O DIFFICULT VENIPUNCTURES "MY VEINS ROLL".
[2020-10-12 21:40] VITALS: BP 152/98; PULSE 70; TEMP 98.4
[2020-10-12 23:39] VITALS: BP 165/74; PULSE 68; TEMP 98
[2020-10-13 03:35] VITALS: BP 151/79; PULSE 80; TEMP 97.9
[2020-10-13 04:20] LABS: BASO % 0.4 % (0.0-2.0); GRAN # 1.7 (1.4-6.5); GRAN % 61.1 % (42.2-75.2); HEMATOCRIT 45.5 % (37.0-47.0); HEMOGLOBIN 15.1 g/dl (12.5-16.0); LYMPH % 36.3 % (20.0-51.0); MEAN CELL VOLUME 92 fl (80.0-100.0); MEAN CORPUSCULAR HEMOGLOBIN 30 pg (27.0-31.0); MEAN CORPUSCULAR HGB CONC 33 g/dl (33.0-37.0); MEAN PLATELET VOLUME 11.5 fl (7.4-10.4); MONO # 0.1 (0.1-0.6); MONO % 2.2 % (1.7-9.3); PLATELET COUNT 227 K/mm3 (130-400); RED BLOOD COUNT 4.97 M/mm3 (4.10-5.30); REDCELL DISTRIBUTION WIDTH-CV 13.8 % (11.5-14.5)
[2020-10-13 04:31] LABS: ALANINE AMINOTRANSFERASE 64 U/L (4-34); ALBUMIN 4.3 gm/dL (3.5-5.0); ALKALINE PHOSPHATASE 84 U/L (50-136); ANION GAP 11 mmol/L (7-16); AST,SGOT 50 U/L (15-37); BILIRUBIN,TOTAL 0.8 mg/dL (0.0-1.0); BLOOD UREA NITROGEN 11 mg/dL (7-17); CALCIUM 9.5 mg/dL (8.4-10.2); CARBON DIOXIDE 23 mmol/L (22-30); CHLORIDE 103 mmol/L (98-107); CREATININE, serum 0.82 (0.52-1.25); GLUCOSE 195 mg/dL (74-106); SODIUM 138 mmol/L (137-145); TOTAL PROTEIN 7.8 gm/dL (6.4-8.2)
[2020-10-13 04:43] LABS: TROPONIN-I < 0.012 ng/mL (0.000-0.035)
[2020-10-13 07:27] VITALS: BP 166/88; PULSE 73; TEMP 97.6
--- NOTE | 2020-10-13 07:31 | NUR ---
CHANGE OF SHIFT REPORT GIVEN TO DAY SHIFT NURSEBARB.
--- NOTE | 2020-10-13 07:44 | NUR ---
CONTACTED PROVIDER FOR CONSULT TO PLACE CENTRAL LINE. ANESTHESIA CONSULT WAS PLACED, ANESTHESIA RECOMMENDED GENERAL SURGERY CONSULT TO PLACE THE CENTRAL LINE.
--- NOTE | 2020-10-13 09:45 | NUR ---
PT IV HAS EXTRAVASATED, IV IN L FOREARM REMOVED. AWAIT PICC PLACEMENT BY DR. DOMINGUEZ. IV MEDICATIONS UNABLE TO BE GIVEN AT THIS TIME.
[2020-10-13 12:00] VITALS: BP 127/71; PULSE 80; TEMP 97.9
--- NOTE | 2020-10-13 14:40 | NUR ---
Sample Grinder contacted patient on her cell phone (ph#[phone]) to discuss discharge planning. Patient lives in [place] with her , Noah (ph#[phone]) and sees Dr. Nails for primary care. Patient obtains medications from [facility] with no difficulties and does not use any DME. Patient had an exercise oximetry and at this time will not require oxygen at discharge. Patient reports independence with ADLS and plans to return home upon discharge with her providing transportation. Patient does not have Advance Directives. ANGELICA contacted patient's , Noah who does not have any questions or concerns about patient returning home at this time. Noah advised patient thinks she may get to go home tomorrow. ANGELICA then spoke with RN, Rach who advised patient is independent in her room. ANGELICA will continue to follow as needed.
[2020-10-13 16:44] VITALS: BP 141/84; PULSE 81; TEMP 98.8
--- NOTE | 2020-10-13 17:07 | NUR ---
PT HAS HAD AN UNEVENTFUL DAY. OXYGEN SATURATIONS INCREASED TO 100% ON RA WHEN AWAKE, WHEN PT IS ASLEEP, SHE DOES DECREASE TO 92%. EXERCISE OXIMETRY WAS PERFORMED TODAY, AND THE PATIENT DID NOT DESAT DURING AMBULATION. THE PT HAS BEEN INDEPENDENT IN THE ROOM. PT'S IV DID GO BAD TODAY, AND THE PHYSICIAN INITIALLY ORDERED A PICC PLACEMENT, HOWEVER, D/T PATIENTS STATUS ON ORAL MEDICATIONS, AND NO NEED FOR OXYGEN, THE PATIENT IS WITHOUT IV ACCESS. ACCORDING TO THE PROVIDER, THE PATIENT SHOULD D/C HOME TOMORROW. NO FURTHER CONCERNS, WILL ENDORSE TO NIGHT RN.
--- NOTE | 2020-10-13 18:46 | NUR ---
REPORT GIVEN TO LANE MORATAYA
[2020-10-13 19:38] VITALS: BP 124/49; PULSE 87; TEMP 97.8
[2020-10-13 20:29] VITALS: BP 141/85; PULSE 88; TEMP 98.3
[2020-10-14 00:06] VITALS: BP 1439/82; PULSE 85; TEMP 97.5
[2020-10-14 03:40] VITALS: BP 138/80; PULSE 68; TEMP 98.1
[2020-10-14 07:27] VITALS: BP 132/86; PULSE 67; TEMP 98.2
--- NOTE | 2020-10-14 07:31 | NUR ---
Lying in bed with eyes closed. Opens eyes when name called out. Alert and oriented x4. Denies pain. Is on room air, no shortness of breath. No IV access at this time. Will need to clarify with provider if we need to obtain PICC or if patient will discharge. Patient denies needs at this time.
[2020-10-14] MEDS ORDERED: ELIQUIS 5MG PO (10:18)
[2020-10-14] MEDS ORDERED: DECADRON6 MG PO (10:41)
[2020-10-14 11:16] VITALS: BP 150/79; PULSE 73; TEMP 97.7
--- NOTE | 2020-10-14 11:44 | NUR ---
Review all discharge instructions with the patient. Denies questions at this time and signs discharge paperwork. Discharge packet provided to the patient. Patient calls spouse and he is going to check the weather and then will call with time he will come get her. Explain that there is no chaudhary. Patient will let spouse know to go to ER entrance and she will use call light when he is at ER to pick her up. Patient denies any additional needs at this time.
--- NOTE | 2020-10-14 13:28 | NUR ---
Patient uses call light and says that her spouse is at the ER entrance to pick her up. Patient assisted out to POV via wheelchair with all belongings by ELLE Hoffman.
== END 2020-10-14 13:29 | disposition home or self-care (01) | DRG 177 ==
LOC: COL.ER 13:22 → MEDICAL 16:43
PROVIDERS: Nurse Practitioner; Physician Assistant; ADMIT Student in an Organized Health Care Education/Training Program
DX: U07.1 COVID-19 (principal); J12.82 Pneumonia due to coronavirus disease 2019; J96.01 Acute respiratory failure with hypoxia; I82.91 Chronic embolism and thrombosis of unspecified vein; D84.9 Immunodeficiency, unspecified; Z68.42 Body mass index [BMI] 45.0-49.9, adult; G47.33 Obstructive sleep apnea (adult) (pediatric); J45.909 Unspecified asthma, uncomplicated; K21.9 Gastro-esophageal reflux disease without esophagitis; E11.9 Type 2 diabetes mellitus without complications; E78.5 Hyperlipidemia, unspecified; I10 Essential (primary) hypertension; E66.01 Morbid (severe) obesity due to excess calories; F41.9 Anxiety disorder, unspecified; E11.40 Type 2 diabetes mellitus with diabetic neuropathy, unspecified; F32.9 Major depressive disorder, single episode, unspecified; M19.90 Unspecified osteoarthritis, unspecified site; G43.909 Migraine, unspecified, not intractable, without status migrainosus; M06.9 Rheumatoid arthritis, unspecified; M10.9 Gout, unspecified; R79.89 Other specified abnormal findings of blood chemistry; M79.2 Neuralgia and neuritis, unspecified; R07.89 Other chest pain; M54.81 Occipital neuralgia; Z90.710 Acquired absence of both cervix and uterus; Z90.49 Acquired absence of other specified parts of digestive tract; Z86.711 Personal history of pulmonary embolism; Z86.718 Personal history of other venous thrombosis and embolism; Z87.891 Personal history of nicotine dependence; Z98.84 Bariatric surgery status
CPT/HCPCS: 99223-AI; 99232-AI; 99233-AI; J0696; J1100; J7030; J8540; Q9967

== ENCOUNTER 2020-10-17 13:39 | Outpatient (CLI) | payer BC ==
[~2020-10-17 13:39] MED LIST changes: +DECADRON6 MG PO; +ELIQUIS 5MG PO; +ZYLOPRIM 100MG100 MG PO
[2020-10-17 14:42] VITALS: BP 136/85; PULSE 58; TEMP 98.8
[2020-10-17 15:00] VITALS: BP 143/75; PULSE 50; TEMP 98.8
[2020-10-17 15:30] VITALS: BP 137/70; PULSE 56
[2020-10-17 15:45] VITALS: BP 142/75; PULSE 55
[2020-10-17 16:00] VITALS: BP 141/65; PULSE 55
[2020-10-17 16:30] VITALS: BP 137/71; PULSE 58; TEMP 98.2
--- NOTE | 2020-10-17 17:07 | NUR ---
PT COMPLETED INFUSION WITHOUT ANY ADVERSE REACTIONS. VSS. IV REMOVED AND PT ESCORTED TO ER EXIT.
== END 2020-10-17 17:00 ==
LOC: EUO 13:39
DX: U07.1 COVID-19 (principal)
CPT/HCPCS: J7050

== ENCOUNTER 2020-10-18 17:43 | Emergency (ER) | payer BC ==
[~2020-10-18] VITALS: Ht 157.5 cm; Wt 119.1 kg
[2020-10-18 18:01] VITALS: TEMP 98.5
[2020-10-18 19:21] LABS: HEMATOCRIT 45.1 % (37.0-47.0); HEMOGLOBIN 15.3 g/dl (12.5-16.0); MEAN CELL VOLUME 89 fl (80.0-100.0); MEAN CORPUSCULAR HEMOGLOBIN 30 pg (27.0-31.0); MEAN CORPUSCULAR HGB CONC 34 g/dl (33.0-37.0); MEAN PLATELET VOLUME 11.6 fl (7.4-10.4); PLATELET COUNT 282 K/mm3 (130-400); RED BLOOD COUNT 5.07 M/mm3 (4.10-5.30); REDCELL DISTRIBUTION WIDTH-CV 13.4 % (11.5-14.5)
[2020-10-18 19:52] LABS: ALANINE AMINOTRANSFERASE 109 U/L (4-34); ALBUMIN 4.2 gm/dL (3.5-5.0); ALKALINE PHOSPHATASE 66 U/L (50-136); ANION GAP 8 mmol/L (7-16); AST,SGOT 51 U/L (15-37); BILIRUBIN,TOTAL 0.5 mg/dL (0.0-1.0); BLOOD UREA NITROGEN 21 mg/dL (7-17); CALCIUM 9.6 mg/dL (8.4-10.2); CARBON DIOXIDE 28 mmol/L (22-30); CHLORIDE 101 mmol/L (98-107); CREATININE, serum 0.82 (0.52-1.25); GLUCOSE 164 mg/dL (74-106); POTASSIUM 4.2 mmol/L (3.4-5.0); SODIUM 138 mmol/L (137-145); TOTAL PROTEIN 7.5 gm/dL (6.4-8.2)
[2020-10-18 19:56] LABS: C-REACTIVE PROTEIN < 0.5 mg/dL (0.0-0.9)
[2020-10-18 20:00] LABS: HYPOCHROMIA 1+; LYMPHOCYTE 14 % (20.0-51.0); NEUTROPHILS 76 % (42.0-75.2); PLATELET ESTIMATE NORMAL (NORMAL)
[2020-10-18 20:05] LABS: TROPONIN-I < 0.012 ng/mL (0.000-0.035)
[2020-10-18 22:17] VITALS: BP 150/80; PULSE 78
== END 2020-10-18 22:17 | disposition home or self-care (01) ==
LOC: COL.ER 17:43
PROVIDERS: Nurse Practitioner Primary Care
DX: U07.1 COVID-19 (principal); J45.909 Unspecified asthma, uncomplicated; M10.9 Gout, unspecified; E66.9 Obesity, unspecified; Z86.718 Personal history of other venous thrombosis and embolism; Z88.6 Allergy status to analgesic agent; Z87.891 Personal history of nicotine dependence; Z79.01 Long term (current) use of anticoagulants
CPT/HCPCS: J0456; J0696; J7030; J7050; Q9967

== ENCOUNTER 2021-06-20 15:16 | Emergency (ER) | payer BC ==
[~2021-06-20] VITALS: Ht 160 cm; Wt 120.0 kg
[2021-06-20] MEDS ORDERED: PREDNISONE10 MG (15:26)
[2021-06-20] MEDS ORDERED: ALBUTEROL0.83 MG/ML (15:26)
[2021-06-20] MEDS ORDERED: METHOTREXA2.5 MG/TAB (15:27)
[2021-06-20] MEDS ORDERED: LEVAQUIN 5500 MG/TA1 (15:28)
[2021-06-20 15:29] VITALS: TEMP 97.7
[2021-06-20 16:19] LABS: BASO % 0.2 % (0.0-2.0); GRAN # 9.6 (1.4-6.5); HEMATOCRIT 41.6 % (37.0-47.0); LYMPH # 0.9 (1.2-3.4); LYMPH % 8.4 % (20.0-51.0); MEAN CELL VOLUME 91 fl (80.0-100.0); MEAN CORPUSCULAR HEMOGLOBIN 31 pg (27.0-31.0); MEAN CORPUSCULAR HGB CONC 34 g/dl (33.0-37.0); MEAN PLATELET VOLUME 10.5 fl (7.4-10.4); MONO # 0.3 (0.1-0.6); MONO % 2.9 % (1.7-9.3); PLATELET COUNT 314 K/mm3 (130-400); RED BLOOD COUNT 4.56 M/mm3 (4.10-5.30); REDCELL DISTRIBUTION WIDTH-CV 12.9 % (11.5-14.5)
[2021-06-20 16:29] LABS: ALANINE AMINOTRANSFERASE 48 U/L (4-34); ALBUMIN 4.4 gm/dL (3.5-5.0); ALKALINE PHOSPHATASE 66 U/L (50-136); ANION GAP 11 mmol/L (7-16); AST,SGOT 22 U/L (15-37); BILIRUBIN,TOTAL 0.3 mg/dL (0.0-1.0); BLOOD UREA NITROGEN 14 mg/dL (7-17); CALCIUM 9.9 mg/dL (8.4-10.2); CARBON DIOXIDE 24 mmol/L (22-30); CHLORIDE 106 mmol/L (98-107); CREATININE, serum 0.83 (0.52-1.25); GLUCOSE 269 mg/dL (74-106); POTASSIUM 4.3 mmol/L (3.4-5.0); SODIUM 141 mmol/L (137-145); TOTAL PROTEIN 8.1 gm/dL (6.4-8.2)
[2021-06-20 16:55] LABS: TROPONIN-I < 0.012 ng/mL (0.000-0.035)
[2021-06-20 18:05] VITALS: BP 167/92; PULSE 94
== END 2021-06-20 18:05 | disposition home or self-care (01) ==
LOC: COL.ER 15:16
PROVIDERS: Personal Emergency Response Attendant
DX: J45.909 Unspecified asthma, uncomplicated (principal); I10 Essential (primary) hypertension; E11.9 Type 2 diabetes mellitus without complications; Z87.891 Personal history of nicotine dependence; Z79.899 Other long term (current) drug therapy
CPT/HCPCS: J2930

== ENCOUNTER → 2022-05-31 | Outpatient (CLI) | payer OTHER, BC ==
[~2022-05-31] MED LIST changes: +ALBUTEROL0.83 MG/ML; +LEVAQUIN 5500 MG/TA1; +METHOTREXA2.5 MG/TAB; +PREDNISONE10 MG
== END ==
LOC: COL.RAD 15:00
DX: S09.90XA Unspecified injury of head, initial encounter (principal); Z98.890 Other specified postprocedural states; X58.XXXA Exposure to other specified factors, initial encounter

== ENCOUNTER 2024-05-18 08:12 | Day surgery (SDC) | payer BC ==
[~2024-05-18] VITALS: Ht 160 cm; Wt 129.7 kg
[~2024-05-18 08:12] MED LIST changes: +LR 1,000 ML IV SCH; -METHOTREXA2.5 MG/TAB; +Ondansetron 4 MG/2 ML VIAL IV PRN
[2024-05-18] MEDS ORDERED: CRESTOR5 MG PO (08:54)
[2024-05-18 09:02] VITALS: BP 138/90; PULSE 64; TEMP 97
[2024-05-18] MEDS ORDERED: Lidocaine PF 2% (20 MG/ML) 5 ML VIAL ONE (09:16)
[2024-05-18 09:50] VITALS: BP 162/99; PULSE 64
[2024-05-18 10:05] VITALS: BP 169/95; PULSE 62
[2024-05-18 10:20] VITALS: BP 160/90; PULSE 63
--- NOTE | 2024-05-18 11:11 | NUR ---
0950 PATIENT RETURNS TO [facility]. PT AWAKE AND ALERT. RESPIRATIONS UNLABORED. AMBULATED TO RECLINER CHAIR WITH 2:1 SBA. PT DENIES NAUSEA OR ABDOMINAL PAIN. HOOKED UP TO MONITOR AND VS OBTAINED. CALL LIGHT AT SIDE AND PRESENT. 1000 PATIENT TOLERATING COFFEE AND MUFFIN WITHOUT NAUSEA OR DIFFICULTY SWALLOWING. 1010 IN ROOM SPEAKING WITH PATIENT. 1020 DC INSTRUCTIONS REVIEWED WITH PATIENT. PT VERBALIZED UNDERSTANDING AND A COPY OF INSTRUCTIONS PROVIDED IN D/C FOLDER. 1040 PATIENT DRESSES SELF. 1045 PATIENT DISCHARGED FROM UNIT VIA W/C TO A PERSONAL VEHICLE. PT LEFT HOSPITAL IN STABLE CONDITION.
== END 2024-05-18 10:45 | disposition home or self-care (01) ==
LOC: SDCO 08:12
DX: D12.0 Benign neoplasm of cecum (principal); D12.4 Benign neoplasm of descending colon; D12.5 Benign neoplasm of sigmoid colon; D12.8 Benign neoplasm of rectum; K64.0 First degree hemorrhoids
CPT/HCPCS: J2704; J7120